=== PATIENT | female | born 1985 | race Asian ===

== ENCOUNTER 2017-03-21 06:32 | Emergency (ER) | payer OTHER ==
[~2017-03-21] VITALS: Ht 160 cm; Wt 71.0 kg
[~2017-03-21 06:32] MED LIST: BCPILLS PO
[2017-03-21 06:33] VITALS: Ht 160 cm; Wt 71.0 kg
[2017-03-21] MEDS ORDERED: ETONMIS VAGRING (06:50)
[2017-03-21] MEDS ORDERED: KETAMINE HCL INJ 50 MG/ML 10 ML VIAL IV STA (07:17)
[2017-03-21 07:30] VITALS: BP 122/93; PULSE 88; TEMP 36.8; O2SAT 97
[2017-03-21] MEDS ORDERED: PROPOFOL IV EMULSION 10 MG/ML 100 ML VIAL IV ONE (07:30)
--- NOTE | 2017-03-21 07:42 | EMERGENCY ROOM VISIT NOTE ---
Pre-Mod Sedation Assessment General Date of Moderate Sedation: Mar 21, 2017. Vital Signs: Vital Signs Past 12 Hours Date Time Temp Pulse Resp B/P (MAP) Pulse Ox O2 Delivery O2 Flow Rate FiO2 03/21/17 07:30 94 03/21/17 06:33 108 20 139/60 96 Room Air Pre-Sedation Airway Assessment Oral Cavity: WNL Able to Visualize Vocal Cords: No Short Thick Neck: No Hx of Sleep Apnea: No Smoking Status: Never Smoker Mallampati Classification: Class I Procedure Planning Contraindications-for Mod Sed: None Yes Notes The planned sedation has been discussed with the patient and consent obtained. I have identified the patient, determined the appropriateness of sedation and have assessed the patient immediately prior to the procedure. All medicine(s) and interventions are by my order.
[2017-03-21] MEDS ORDERED: PROPOFOL IV EMULSION 10 MG/ML 20 ML VIAL IV ONE (07:46)
[2017-03-21 07:50] VITALS: BP 143/96; PULSE 98; O2SAT 100
--- NOTE | 2017-03-21 08:00 | EMERGENCY ROOM VISIT NOTE ---
ED Visit Note First contact with patient: 07:40 Joint Reduction: Indication: Bilateral TMJ dislocation secondary to yawning while awakening. Exam: Moderate discomfort. Bilateral TMJ dislocation unable to close mouth. No difficulty breathing. No trauma nor bruising appreciated. Written consent was obtained after the risks and benefits were explained to the patient, including, but not limited to fracture, pain, bleeding, inability to reduce, etc. A time out was taken. Sedation was done by Dr Robles. After I observed the patient had reached the appropriate level of sedation I gentle reduced the bilateral jaw dislocation in standard fashion with downward traction. Following this jaw with good movement. Sedation was discontinued and the monitoring continued. Awoke with resolution of dislocation symptoms.
[2017-03-21 08:22] VITALS: BP 130/89; PULSE 93; TEMP 36.8; O2SAT 100
[2017-03-21] MEDS ORDERED: ONDANSETRON INJ 2 MG/ML 2 ML VIAL IV STA (08:44)
--- NOTE | 2017-03-21 09:17 | EMERGENCY ROOM VISIT NOTE ---
History Report prepared by Kimberlyibsohail: Cierra Bruno Under the Supervision of: Dr. Aric Robles D.O. First contact with patient: 07:04 Chief Complaint: FACIAL PAIN/INJURY Stated Complaint: JAW DISLOCATION History of Present Illness The patient is a 31 year old female who presents to the Emergency Room with complaints of worsening jaw pain that started 1 hour ago, around 0600. The history is limited secondary to the patient's jaw dislocation. The patient is unable to close her mouth and can communicate minimally secondary to pain. She states that she was yawning when her jaw locked and dislocated. The patient has experienced a jaw dislocation in the past. Source of History: patient History Limited By: other (jaw dislocation) Onset: 1 hour ago, around 0600 Position: jaw Quality: other (jaw pain) Timing: worsening Review of Systems See HPI for pertinent positives & negatives. ROS limited secondary to jaw dislocation. Past Medical & Surgical Medical Problems: (1) Jaw dislocation Family History Cancer Social History Smoking Status: Never Smoker Alcohol Use: none Occupation Status: [employer] student Current/Historical Medications Scheduled Etonogestrel/Ethinyl Estradiol (Nuvaring), 1 EA VAGRING MONTHLY Allergies Coded Allergies: No Known Allergies (Unverified , 07/15/12) Physical Exam Vital Signs Date Time Temp Pulse Resp B/P (MAP) Pulse Ox O2 Delivery O2 Flow Rate FiO2 03/21/17 10:40 78 18 128/71 98 03/21/17 10:02 86 18 127/86 98 Room Air 03/21/17 08:22 36.8 93 18 130/89 100 Room Air 03/21/17 08:00 90 14 143/96 100 Nasal Cannula 4.0 03/21/17 07:50 98 14 143/96 100 Nasal Cannula 4.0 03/21/17 07:30 36.8 88 20 122/93 97 Room Air 03/21/17 07:30 94 03/21/17 06:33 108 20 139/60 96 Room Air Physical Exam CONSTITUTIONAL/VITAL SIGNS: Reviewed / noted above. GENERAL: Non-toxic in appearance. INTEGUMENTARY: Warm, dry, and Leaf. HEAD: Normocephalic. EYES: without scleral icterus or trauma. ENT/OROPHARYNX: Mouth is open, discomfort with attempting to close mouth, oropharynx otherwise clear. LYMPHADENOPATHY/NECK: Is supple without lymphadenopathy or meningismus. RESPIRATORY: Lungs clear and equal. CARDIOVASCULAR: Regular rate and rhythm. GI/ABDOMEN: Soft and nontender. No organomegaly or pulsatile mass. No rebound or guarding. Normal bowel sounds. EXTREMITIES: Warm and well perfused. BACK: No CVA tenderness. NEUROLOGICAL: Intact without focal deficits. PSYCHIATRIC: normal affect. MUSCULOSKELETAL: Normally developed with good muscle tone. Medical Decision & Procedures Medications Administered Medications (Trade) Dose Ordered Sig/Aurea Route Start Time Stop Time Status Last Admin Dose Admin Ondansetron HCl (Zofran Inj) 4 mg NOW STAT IV 03/21/17 08:44 03/21/17 08:45 DC 03/21/17 08:57 4 MG Procedure Procedural Sedation Indication Jaw dislocation reduction. Total time: 22 minutes. Written consent was obtained after the risks and benefits were explained to the patient, including, but not limited to aspiration, allergic reaction, breathing difficulties, cardiac complications, vomiting, pain, event recall, bleeding, and /or infection. Pre-sedation examination and paperwork completed. The patient was on 100% oxygen via NRB prior to the procedure. Continous end tidal CO2 monitoring, pulse oximetry, and cardiac monitoring were utilized. Suction, airway equipment, medications, respiratory equipment, and appropriate personnel were prepared prior to the initiation of the procedure. A time out was taken. Sedation was achieved utilizing 35 mg of Ketamine and 35 mg of propofol. After I observed the patient had reached the appropriate level of sedation the main procedure was performed without complication. Sedation was discontinued and the monitoring continued. The patient recovered quickly from the effects of the medication without complication or adverse event. ED Course 07: Previous medical records were reviewed. The patient was evaluated in room A2. A complete history and physical examination was performed. I attempted to reduce the patient's jaw at this time. The patient could not tolerate the procedure so it was unsuccessful. 0717: Ordered Ketamine HCl 35 mg IV 0744: I performed a procedural sedation on the patient while Dr. Clarke performed the jaw reduction. Please refer to the procedure note above as well as his note for further details. 0746: Ordered Propofol 200 mg IV 0836: I reassessed the patient. She is doing better but states that she is experiencing some nausea. I discussed the results and findings with the patient. She verbalized agreement of the treatment plan. She will be discharged home after 30 minutes to 1 hour. 0844: Ordered Zofran Inj 4 mg IV Medical Decision Differential considered: jaw dislocation, jaw fracture. Medication Reconciliation: I attest that I have personally reviewed the patient' s current medication list. Patient was found to have a slightly elevated blood pressure due to circumstances. I do not believe that the patient requires hypertension monitoring. This is a 31-year-old female who presents to the ED with a chief complaint of jaw dislocation. The patient states that she was yawning last night and the dislocation occurred. The patient has had previous episodes of this. The patient's exam is above. She is unable to close her mouth. I initially attempted reduction without medication but this was not successful. The patient was then given conscious sedation. I provided conscious sedation for the patient. Dr. Clarke provided reduction of the jaw dislocation. The patient did not have any complications with the procedure. The patient awoke. She was feeling better. She was a little nauseated and was given IV Zofran. She is felt to be stable for discharge. Impression Primary Impression: Jaw dislocation Scribe Attestation The scribe's documentation has been prepared under my direction and personally reviewed by me in its entirety. I confirm that the note above accurately reflects all work, treatment, procedures, and medical decision making performed by me. Departure Information Dispostion Home / Self-Care Referrals No Doctor, Assigned (PCP) Forms HOME CARE DOCUMENTATION FORM, IMPORTANT VISIT INFORMATION Patient Instructions My [facility] Additional Instructions Follow-up with your doctor for further care and evaluation in 1-2 days as needed. Return to the emergency department for worsening or new symptoms or any concerns. You have been examined and treated today on an emergency basis only. This is not a substitute for, or an effort to provide, complete comprehensive medical care. It is impossible to recognize and treat all injuries or illnesses in a single emergency department visit. It is therefore important that you follow up closely with your doctor. Call as soon as possible for an appointment. Take Tylenol / Motrin for pain as needed. Problem Qualifiers Primary Impression: Jaw dislocation Encounter type: initial encounter Qualified Codes: S03.00XA - Dislocation of jaw, unspecified side, initial encounter
[2017-03-21 10:40] VITALS: BP 128/71; PULSE 78; O2SAT 98
== END 2017-03-21 10:38 | disposition home or self-care (01) ==
LOC: C.EDB 06:33 → C.EDA 10:38
DX: S03.00XA Dislocation of jaw, unspecified side, initial encounter (principal); X58.XXXA Exposure to other specified factors, initial encounter; Z80.9 Family history of malignant neoplasm, unspecified; Z79.3 Long term (current) use of hormonal contraceptives